=== PATIENT | male | born 1955 | race Caucasian/White ===

== ENCOUNTER → 2021-03-19 07:23 | Outpatient (CLI) | payer OTHER, SELFPAY ==
--- NOTE | ~2021-03-19 | MR_ITS ---
EXAMINATION: MR shoulder RT wo con DATE: 03/19/2021 08:35 INDICATION: Right rotator cuff tear presenting with right shoulder pain, numbness and limited range o f motion which has been worsening of the past several months TECHNIQUE: Magnetic resonance imaging (MRI) of the right shoulder was performed without intravenous c ontrast. Sequences included axial PD-weighted FS FSE, coronal oblique PD-weighted FS FSE, coronal obl ique T2-weighted FS FSE, sagittal PD-weighted FS FSE, and sagittal T1-weighted SE. COMPARISON: None. FINDINGS: Coracoacromial arch: The acromion undersurface is flat in morphology (type I) likely reflecting changes of prior acromiopl asty with foci of susceptibility artifact along the anterior tip of the acromion with debridement of the acromial side of the coracoacromial ligament. There is also been prior distal right clavicle rese ction. Rotator cuff: Are suture anchors at the greater tuberosity and foci susceptibility artifact along the distal aspect of the supraspinatus tendon consistent with prior rotator cuff repair. There is attenuation of the d istal supraspinatus and infraspinatus tendons with intact articular surface consistent with partial t hickness articular sided tear. An irregular articular sided retracted supraspinatus tendon tear tessa n can be seen positioned between the apex of the humeral head and the rim of the glenoid. The distal 1.5 cm of the supraspinatus tendon this appears to involve at least two thirds of the tendon thicknes s. No definitive full-thickness tear defect appreciated on the focal small full-thickness perforation s cannot be excluded with evaluation of the footplate somewhat limited by the magnetic field artifact related to prior repair. The teres minor tendon is normal. Moderate subscapularis tendinopathy witho ut discrete tear. Normal rotator cuff muscle bulk and signal. Biceps tendon, glenoid labrum and glenohumeral cartilage: Long head of the biceps tendon can be followed to the cephalad aspect of the intertubercular groove w here there is postoperative signal artifact with no intra-articular portion of the tendon appreciated suggesting prior tenodesis. Correlate with surgical history. No discrete labral tear appreciated. Th e posterior inferior labrum appears diminutive to absent, largely replaced by small marginal osteophy thalia along the rim of the glenoid. There is deep chondral ulceration along the superior rim of the gle noid with mild subarticular cystic change at the 12:30 rim of the glenoid. Additional partial thickne ss cartilage loss most prominent along the inferomedial aspect of the humeral head and to lesser degr ee at the cephalad aspect where there appears be some mild chondral surface irregularity. Fluid: Physiologic amount of fluid in the glenohumeral joint and biceps tendon sheath. No loose osteochondra l bodies. Small amount of fluid in the subacromial/subdeltoid bursa consistent with mild bursitis. Bones: Normal marrow signal with no edema, fracture or abnormal marrow replacing process. IMPRESSION: 1. Postoperative change of prior acromioplasty, distal clavicle resection, bicipital tenodesis and alexander praspinatus rotator cuff repair. Correlate with details of prior surgical history. 2. Thinning of the infraspinatus and most severely of the distal supraspinatus tendon tear involves a t least two thirds of the tendon thickness suggesting recurrent articular sided tearing. There is no prior imaging however to establish an initial postoperative baseline appearance of the tendons. 3. Mild glenohumeral osteoarthritis with chronic degeneration and partial replacement by osteophytes of the posterior inferior glenoid labrum. 4. Mild subacromial/subdeltoid bursitis. Reviewed, dictated and finalized at location A. Electronically signed by Rao Shelby M.D. on
== END ==
PROVIDERS: Visit Provider Family Medicine
DX: M75.101 Unspecified rotator cuff tear or rupture of right shoulder, not specified as traumatic (principal); M19.011 Primary osteoarthritis, right shoulder; M75.51 Bursitis of right shoulder
CPT/HCPCS: 73221